=== PATIENT | male | born 1940 | race Two or more races ===

== ENCOUNTER → 2021-09-29 | Emergency (ER) | payer OTHER ==
[~2021-09-29] VITALS: Ht 172.7 cm; Wt 72.6 kg
== END | disposition designated cancer center or children's hospital (05) ==
LOC: ER 14:47
DX: S72.111A Displaced fracture of greater trochanter of right femur, initial encounter for closed fracture (principal); S60.511A Abrasion of right hand, initial encounter; W19.XXXA Unspecified fall, initial encounter; Y93.9 Activity, unspecified; Y92.9 Unspecified place or not applicable; Y99.9 Unspecified external cause status; I10 Essential (primary) hypertension